=== PATIENT | female | born 1980 | race Two or more races ===

== ENCOUNTER 2017-03-06 23:02 | Inpatient (IN) | payer MEDICAID ==
[~2017-03-06] VITALS: Ht 154.9 cm; Wt 74.5 kg
[~2017-03-06 23:02] MED LIST: CLIN300C93 PO; DIAZ10TA PO; DOXE10CA PO; FLUO20CA19 PO; LEVE250T28 PO; LEVE750T37 PO; NITR100C56 PO; ONDA4TAB7 PO; QUET100T4 PO; TRAM50TA2 PO; TRI CYCLEN PO
[2017-03-06] MEDS ORDERED: LORazepam 2 MG/ML, 1ML IV PRN (23:45)
[2017-03-07] MEDS: SODIUM CHLORIDE 0.9% 1,000 ML IV SCH ×2 (00:11→13:05)
[2017-03-07] MEDS: HYDROcodone/APAP 5/325 TABLET PO PRN ×4 (00:12→20:11)
[2017-03-07 01:31] VITALS: BP 117/76
[2017-03-07 05:10] VITALS: BP 114/74
[2017-03-07 05:51] LABS: HEMOGLOBIN 12.5 g/dL (11.7-16.4)
[2017-03-07 07:15] LABS: BLOOD UREA NITROGEN 12 mg/dL (7-18)
[2017-03-07] MEDS ORDERED: LORazepam 2 MG/ML, 1ML IVPush ONE (07:30)
[2017-03-07 07:47] VITALS: BP 108/67
[2017-03-07] MEDS: LEVETIRACETAM 500 MG TABLET PO SCH ×2 (08:45→20:10)
[2017-03-07] MEDS: CARBAMAZEPINE 200 MG TABLET PO SCH ×2 (08:45→20:10)
[2017-03-07] MEDS: FAMOTIDINE 20 MG TABLET PO SCH ×2 (08:45→20:11)
[2017-03-07 12:35] VITALS: BP 117/80
[2017-03-07 19:05] VITALS: BP 108/71
[2017-03-07] MEDS: FLUOXETINE 20 MG CAPSULE PO SCH (20:09)
[2017-03-07] MEDS: QUETIAPINE 200 MG TABLET PO SCH (22:10)
[2017-03-08 01:29] VITALS: BP 112/73
[2017-03-08] MEDS: SODIUM CHLORIDE 0.9% 1,000 ML IV SCH ×2 (04:30→17:20)
[2017-03-08] MEDS: HYDROcodone/APAP 5/325 TABLET PO PRN ×5 (04:30→23:20)
[2017-03-08 07:17] VITALS: BP 106/64
[2017-03-08] MEDS: FAMOTIDINE 20 MG TABLET PO SCH ×2 (08:21→22:34)
[2017-03-08] MEDS: LEVETIRACETAM 500 MG TABLET PO SCH ×2 (08:21→22:34)
[2017-03-08] MEDS: CARBAMAZEPINE 200 MG TABLET PO SCH ×2 (08:21→22:34)
[2017-03-08 13:51] VITALS: BP 110/68
[2017-03-08] MEDS ORDERED: LEVE500T53 PO (14:11)
[2017-03-08 20:31] VITALS: BP 118/76
[2017-03-08] MEDS: FLUOXETINE 20 MG CAPSULE PO SCH (22:34)
[2017-03-08] MEDS: QUETIAPINE 200 MG TABLET PO SCH (22:34)
[2017-03-09 02:28] VITALS: BP 108/73
[2017-03-09] MEDS: HYDROcodone/APAP 5/325 TABLET PO PRN ×4 (04:38→16:42)
[2017-03-09] MEDS: SODIUM CHLORIDE 0.9% 1,000 ML IV SCH (08:00)
[2017-03-09 08:19] VITALS: BP 109/68
[2017-03-09] MEDS: CARBAMAZEPINE 200 MG TABLET PO SCH (08:44)
[2017-03-09] MEDS: FAMOTIDINE 20 MG TABLET PO SCH (08:44)
[2017-03-09] MEDS: LEVETIRACETAM 500 MG TABLET PO SCH (08:45)
[2017-03-09 13:20] VITALS: BP 120/69
[2017-03-09] MEDS ORDERED: FLU VACC QS2016-17 (36MOS+)UP/PF 0.5 ML IM-VACC ONE (17:00)
== END 2017-03-09 18:33 | disposition home or self-care (01) | DRG 101 ==
LOC: 4EST 23:02
PROVIDERS: ADMIT Internal Medicine; ATTEND Internal Medicine
DX: G40.209 Localization-related (focal) (partial) symptomatic epilepsy and epileptic syndromes with complex partial seizures, not intractable, without status epilepticus (principal); F32.9 Major depressive disorder, single episode, unspecified; I10 Essential (primary) hypertension; Z80.1 Family history of malignant neoplasm of trachea, bronchus and lung; Z82.0 Family history of epilepsy and other diseases of the nervous system; Z82.49 Family history of ischemic heart disease and other diseases of the circulatory system; H91.90 Unspecified hearing loss, unspecified ear; Z87.820 Personal history of traumatic brain injury; S62.306A Unspecified fracture of fifth metacarpal bone, right hand, initial encounter for closed fracture; W19.XXXA Unspecified fall, initial encounter; Y93.89 Activity, other specified; Y92.89 Other specified places as the place of occurrence of the external cause; Y99.8 Other external cause status; Z88.1 Allergy status to other antibiotic agents; Z88.5 Allergy status to narcotic agent; Z88.8 Allergy status to other drugs, medicaments and biological substances
CPT/HCPCS: 36415; 70553; 80048; 82040; 84443; 85025; 95819; J2060; J7030

== ENCOUNTER 2017-04-21 16:24 | Inpatient (IN) | payer MEDICAID ==
[~2017-04-21] VITALS: Ht 154.9 cm; Wt 67.2 kg
[~2017-04-21 16:24] MED LIST changes: +LEVE500T53 PO
[2017-04-21] MEDS ORDERED: SODIUM CHLORIDE 0.9% 1,000 ML IV ONE (17:02)
[2017-04-21] MEDS ORDERED: SODIUM CHLORIDE FLUSH 10ML SYR IVF ONE (17:30)
[2017-04-21 17:42] LABS: PATH.CAST-FLAG NOT PRESENT; SPERM-FLAG NOT PRESENT; SRC-FLAG NOT PRESENT; XTAL-FLAG NOT PRESENT; YLC-FLAG NOT PRESENT
[2017-04-21 17:49] LABS: BLOOD UREA NITROGEN 13 mg/dL (7-18)
[2017-04-21] MEDS ORDERED: CEFTRIAXONE 1,000 MG in SODIUM CHLORIDE 0.9% 50 ML IVPB ONE (18:30)
[2017-04-21] MEDS ORDERED: SODIUM CHLORIDE FLUSH 10ML SYR IVF PRN (18:30)
[2017-04-21 20:30] VITALS: BP 99/64
[2017-04-21] MEDS ORDERED: ONDANSETRON ODT 4 MG PO PRN (20:30)
[2017-04-21] MEDS ORDERED: DOCUSATE 100 MG CAPSULE PO PRN (20:30)
[2017-04-21] MEDS ORDERED: ACETAMINOPHEN 325 MG TABLET PO PRN (20:30)
[2017-04-21] MEDS ORDERED: BISACODYL 10 MG SUPP PR PRN (20:30)
[2017-04-21] MEDS ORDERED: POLYETHYLENE GLYCOL 17 GM PACKET PO PRN (20:30)
[2017-04-21] MEDS ORDERED: LABETALOL 5MG/ML 40ML VIAL IVPush PRN (20:30)
[2017-04-21 20:37] LABS: HCG UR OBC PASS
[2017-04-21] MEDS: QUETIAPINE 100MG TABLET PO SCH (22:08)
[2017-04-21] MEDS: CARBAMAZEPINE 200 MG TABLET PO SCH (22:08)
[2017-04-21] MEDS: ENOXAPARIN 40 MG/0.4 ML SQ SCH (22:08)
[2017-04-21] MEDS: LEVETIRACETAM 500 MG TABLET PO SCH (22:08)
[2017-04-21] MEDS ORDERED: CLON1PAT7 TD (22:12)
[2017-04-21] MEDS: IBUPROFEN 600 MG TABLET PO PRN (22:52)
[2017-04-21] MEDS: NS + 20MEQ KCL 1,000 ML IV SCH (22:53)
[2017-04-22 02:00] VITALS: BP 93/58
[2017-04-22 05:56] LABS: ASPARTATE AMINO TRANSFERASE 6 U/L (15-37); BLOOD UREA NITROGEN 12 mg/dL (7-18)
[2017-04-22 07:10] VITALS: BP 108/70
[2017-04-22] MEDS: QUETIAPINE 100MG TABLET PO SCH ×3 (08:09→21:00)
[2017-04-22] MEDS: CARBAMAZEPINE 200 MG TABLET PO SCH ×2 (08:09→20:59)
[2017-04-22] MEDS: LEVETIRACETAM 500 MG TABLET PO SCH ×2 (08:09→21:00)
[2017-04-22] MEDS: NS + 20MEQ KCL 1,000 ML IV SCH (12:28)
[2017-04-22] MEDS: CEFDINIR 300 MG CAPSULE PO SCH ×2 (12:28→20:59)
[2017-04-22 13:55] VITALS: BP 123/72
[2017-04-22 13:56] VITALS: BP 123/71
[2017-04-22] MEDS: LORazepam 2 MG/ML, 1ML IVPush PRN ×2 (14:01→16:34)
[2017-04-22 14:21] VITALS: BP 99/63
[2017-04-22] MEDS: KETOROLAC 30 MG/1 ML IVPush PRN (16:46)
[2017-04-22 18:50] VITALS: BP 110/72
[2017-04-22] MEDS: IBUPROFEN 600 MG TABLET PO PRN (19:50)
[2017-04-22] MEDS ORDERED: CYCLOBENZAPRINE 10 MG TABLET PO ONE (20:30)
[2017-04-22] MEDS: ENOXAPARIN 40 MG/0.4 ML SQ SCH (21:06)
[2017-04-23] VITALS (14 sets, daily range): BP systolic 68–180; BP diastolic 64–95
[2017-04-23] MEDS: LORazepam 2 MG/ML, 1ML IVPush PRN ×2 (02:34→07:43)
[2017-04-23] MEDS: NS + 20MEQ KCL 1,000 ML IV SCH (03:27)
[2017-04-23] MEDS: CARBAMAZEPINE 200 MG TABLET PO SCH ×2 (08:59→21:18)
[2017-04-23] MEDS: QUETIAPINE 100MG TABLET PO SCH ×3 (08:59→21:18)
[2017-04-23] MEDS: KETOROLAC 30 MG/1 ML IVPush PRN ×2 (08:59→14:14)
[2017-04-23] MEDS: CEFDINIR 300 MG CAPSULE PO SCH ×2 (09:00→21:18)
[2017-04-23] MEDS: LEVETIRACETAM 500 MG TABLET PO SCH ×2 (09:00→21:18)
[2017-04-23] MEDS: IBUPROFEN 600 MG TABLET PO PRN (21:18)
[2017-04-23] MEDS: ENOXAPARIN 40 MG/0.4 ML SQ SCH (21:22)
[2017-04-24 03:30] VITALS: BP 90/56
[2017-04-24 07:59] VITALS: BP 115/77
[2017-04-24 08:42] LABS: BLOOD UREA NITROGEN 10 mg/dL (7-18)
[2017-04-24 08:45] LABS: ASPARTATE AMINO TRANSFERASE 6 U/L (15-37)
[2017-04-24] MEDS: CEFDINIR 300 MG CAPSULE PO SCH ×2 (09:08→20:37)
[2017-04-24] MEDS: LEVETIRACETAM 500 MG TABLET PO SCH (09:08)
[2017-04-24] MEDS: QUETIAPINE 100MG TABLET PO SCH ×3 (09:09→21:00)
[2017-04-24] MEDS: CARBAMAZEPINE 200 MG TABLET PO SCH ×2 (09:09→20:37)
[2017-04-24 13:23] VITALS: BP_SYST 104; BP_SYST 178; BP_DIAS 68; BP_DIAS 81
[2017-04-24 19:27] VITALS: BP 118/77
[2017-04-24] MEDS: ENOXAPARIN 40 MG/0.4 ML SQ SCH (20:38)
[2017-04-25 03:03] VITALS: BP 105/71
[2017-04-25 07:24] VITALS: BP 98/63
[2017-04-25] MEDS: QUETIAPINE 100MG TABLET PO SCH (08:42)
[2017-04-25] MEDS: CEFDINIR 300 MG CAPSULE PO SCH (08:42)
[2017-04-25] MEDS: CARBAMAZEPINE 200 MG TABLET PO SCH (08:42)
[2017-04-25] MEDS ORDERED: CARB200T4 PO (11:15)
== END 2017-04-25 13:40 | disposition home or self-care (01) | DRG 690 ==
LOC: ED 17:49 → EDIP 18:26 → 4EST 20:14 → DCLOUNGE 04-25 13:32
PROVIDERS: ADMIT Internal Medicine; ATTEND Internal Medicine
DX: N39.0 Urinary tract infection, site not specified (principal); I10 Essential (primary) hypertension; E87.6 Hypokalemia; B96.20 Unspecified Escherichia coli [E. coli] as the cause of diseases classified elsewhere; F44.5 Conversion disorder with seizures or convulsions; F32.9 Major depressive disorder, single episode, unspecified; Z90.710 Acquired absence of both cervix and uterus; Z90.49 Acquired absence of other specified parts of digestive tract; Z88.1 Allergy status to other antibiotic agents; Z88.5 Allergy status to narcotic agent; Z88.8 Allergy status to other drugs, medicaments and biological substances; Z80.1 Family history of malignant neoplasm of trachea, bronchus and lung; Z82.49 Family history of ischemic heart disease and other diseases of the circulatory system
CPT/HCPCS: 36415; 70450; 80048; 80053; 81001; 81025; 82040; 83605; 83735; 84439; 84443; 85025; 87040; 87077; 87086; 87186; 93005; 95816; 95819; 95951; 96374; J0696; J1650; J1885; J3480; J2060; J7030

== ENCOUNTER 2017-11-25 18:30 | Emergency (ER) | payer MEDICAID ==
[~2017-11-25] VITALS: Ht 154.9 cm; Wt 64.0 kg
[~2017-11-25 18:30] MED LIST changes: +CARB200T4 PO; +CLIN300C8 PO; -CLIN300C93 PO; +CLON1PAT7 TD
[2017-11-25] MEDS ORDERED: SODIUM CHLORIDE FLUSH 10ML SYR IVF ONE (19:00)
[2017-11-25] MEDS ORDERED: SODIUM CHLORIDE 0.9% 1,000ML IVBOLUS ONE (19:00)
[2017-11-25 19:21] LABS: BASOPHILS # (AUTO) 0.03 x10^3/uL (0-0.1); BASOPHILS % (AUTO) 0 % (0-1); EOSINOPHILS # (AUTO) 0.01 x10^3/uL (0-0.4); EOSINOPHILS % (AUTO) 0 % (1-7); LYMPHOCYTES # (AUTO) 1.13 x10^3/uL (1-3.4); LYMPHOCYTES % (AUTO) 15 % (22-44); MD NO; MEAN CORPUSCULAR HEMOGLOBIN 30.9 pg (27.0-34.8); MEAN CORPUSCULAR HGB CONC 34.1 g/dL (32.4-35.8); MEAN CORPUSCULAR VOLUME 90.5 fL (80-100); MEAN PLATELET VOLUME 7.2 fL (7.4-10.4); MONOCYTES # (AUTO) 0.21 x10^3/uL (0.2-0.8); MONOCYTES % (AUTO) 3 % (2-9); NEUTROPHILS # (AUTO) 6.29 x10^3/uL (1.8-6.8); NEUTROPHILS % (AUTO) 82 % (42-75); PLATELET COUNT 389 x10^3/uL (130-400); RED BLOOD COUNT 4.74 x10^6/uL (3.82-5.3)
[2017-11-25] MEDS ORDERED: LORazepam 2 MG/ML, 1ML ONE (19:25)
[2017-11-25 19:34] LABS: ALANINE AMINOTRANSFERASE 25 U/L (12-78); ANION GAP 10 mmol/L (5-15); CALCIUM 8.3 mg/dL (8.5-10.1); CHLORIDE 107 mmol/L (98-107); CREATININE 0.52 mg/dL (0.55-1.02)
[2017-11-25 19:35] LABS: SALICYLATE LEVEL < 1.7 mg/dL (2.8-20.0)
[2017-11-25 19:36] LABS: ALKALINE PHOSPHATASE 93 U/L (45-117); TOTAL PROTEIN 7.9 g/dL (6.4-8.2)
[2017-11-25 19:37] LABS: ACETAMINOPHEN < 2 mcg/mL (10-30); BILIRUBIN,TOTAL < 0.1 mg/dL (0.2-1.0)
[2017-11-25] MEDS ORDERED: LORazepam 2 MG/ML, 1ML IVPush ONE (20:00)
[2017-11-25] MEDS ORDERED: LEVETIRACETAM 1,000 MG in SODIUM CHLORIDE 0.9% 100 ML IV ONE (20:00)
[2017-11-25 20:10] LABS: AMPHETAMINE SCREEN, URINE Negative (Negative); BARBITURATE SCREEN, URINE Negative (Negative); BENZODIAZEPINE SCREEN, URINE Positive (Negative); CANNABINOID SCREEN, URINE Negative (Negative); COCAINE SCREEN, URINE Negative (Negative); METHADONE SCREEN, URINE Negative (Negative); OPIATE SCREEN, URINE Negative (Negative)
[2017-11-25] MEDS ORDERED: METO25TA91 PO (22:11)
[2017-11-25] MEDS ORDERED: QUET400T4 PO (22:11)
[2017-11-26 08:07] VITALS: BP 118/76
== END 2017-11-26 08:11 | disposition home or self-care (01) ==
LOC: MERGE 18:30 → ED 20:50 → EDIP 20:55 → UNDOADMIN 20:55 → ED 11-26 08:11
DX: T51.92XA Toxic effect of unspecified alcohol, intentional self-harm, initial encounter (principal); R56.9 Unspecified convulsions; F10.129 Alcohol abuse with intoxication, unspecified; I10 Essential (primary) hypertension; I25.2 Old myocardial infarction; Y92.89 Other specified places as the place of occurrence of the external cause
CPT/HCPCS: 36415; 71045; 80053; 80156; 80307; 80329; 85025; 93005; 96361; 96374; 99285; J2060; J7030; G0479; G0480

== ENCOUNTER 2018-08-31 17:41 | Emergency (ER) | payer SELFPAY ==
[~2018-08-31] VITALS: Ht 154.9 cm; Wt 64.5 kg
[~2018-08-31 17:41] MED LIST changes: +METO25TA91 PO; +QUET400T4 PO
[2018-08-31 18:52] LABS: BASOPHILS # (AUTO) 0.06 x10^3/uL (0-0.1); BASOPHILS % (AUTO) 1 % (0-1); EOSINOPHILS # (AUTO) 0.08 x10^3/uL (0-0.4); EOSINOPHILS % (AUTO) 1 % (1-7); LYMPHOCYTES # (AUTO) 1.42 x10^3/uL (1-3.4); LYMPHOCYTES % (AUTO) 16 % (22-44); MD NO; MEAN CORPUSCULAR HEMOGLOBIN 31.3 pg (27.0-34.8); MEAN CORPUSCULAR HGB CONC 34.6 g/dL (32.4-35.8); MEAN CORPUSCULAR VOLUME 90.3 fL (80-100); MEAN PLATELET VOLUME 7.4 fL (7.4-10.4); MONOCYTES # (AUTO) 0.76 x10^3/uL (0.2-0.8); MONOCYTES % (AUTO) 8 % (2-9); NEUTROPHILS # (AUTO) 6.63 x10^3/uL (1.8-6.8); NEUTROPHILS % (AUTO) 74 % (42-75); PLATELET COUNT 332 x10^3/uL (130-400); RED CELL DISTRIBUTION WIDTH 13.4 % (9.6-15.2)
[2018-08-31 19:02] LABS: CHLORIDE 111 mmol/L (98-107)
[2018-08-31 19:03] LABS: ALBUMIN 3.3 g/dL (3.4-5.0); ANION GAP 9 mmol/L (5-15); CALCIUM 8.5 mg/dL (8.5-10.1)
[2018-08-31 19:05] LABS: ALANINE AMINOTRANSFERASE 16 U/L (12-78); ALKALINE PHOSPHATASE 72 U/L (45-117); BILIRUBIN,TOTAL 0.2 mg/dL (0.2-1.0); CREATININE 0.57 mg/dL (0.55-1.02); TOTAL PROTEIN 7.1 g/dL (6.4-8.2)
[2018-08-31 19:10] LABS: MICROSCOPIC INDICATED
[2018-08-31 19:20] LABS: CULTURE INDICATED? NO
[2018-08-31] MEDS ORDERED: PANTOPRAZOLE 40 MG IV IVPush SCH (19:30)
[2018-08-31 19:31] LABS: INTERNATIONAL NORMALIZED RATIO 0.97 (0.93-1.1)
[2018-08-31] MEDS ORDERED: OMNIPAQUE 350 MG/ML, 100ML BOTTLE ONE (19:42)
[2018-08-31] MEDS ORDERED: PANTOPRAZOLE 40 MG IV ONE (19:52)
[2018-08-31 20:33] VITALS: BP 123/84
== END 2018-08-31 22:01 | disposition home or self-care (01) ==
LOC: ED 20:46
DX: K92.2 Gastrointestinal hemorrhage, unspecified (principal); R11.2 Nausea with vomiting, unspecified; R10.84 Generalized abdominal pain; Z88.1 Allergy status to other antibiotic agents; Z88.5 Allergy status to narcotic agent
CPT/HCPCS: 36415; 74021; 74177; 80053; 81001; 83690; 85025; 85610; 85730; 96374; 99285; C9113; Q9967

== ENCOUNTER 2019-01-08 16:19 | Emergency (ER) | payer OTHER ==
[~2019-01-08] VITALS: Ht 154.9 cm; Wt 63.1 kg
--- NOTE | 2019-01-08 17:10 | NUR ---
Pt reports small discolored painful lump that formed on her left wrist approx 30min prior to arrival, also reports left upper arm pain, full ROM. Reports mild SOB upon arrival to ED, pt in no obv acute resp distrees upon assessment.
[2019-01-08 17:25] LABS: BASOPHILS # (AUTO) 0.05 x10^3/uL (0-0.1); BASOPHILS % (AUTO) 1 % (0-1); EOSINOPHILS # (AUTO) 0.19 x10^3/uL (0-0.4); EOSINOPHILS % (AUTO) 2 % (1-7); LYMPHOCYTES # (AUTO) 2.26 x10^3/uL (1-3.4); LYMPHOCYTES % (AUTO) 28 % (22-44); MD NO; MEAN CORPUSCULAR HEMOGLOBIN 29.8 pg (27.0-34.8); MEAN CORPUSCULAR HGB CONC 33.6 g/dL (32.4-35.8); MEAN CORPUSCULAR VOLUME 88.9 fL (80-100); MEAN PLATELET VOLUME 7.8 fL (7.4-10.4); MONOCYTES # (AUTO) 0.45 x10^3/uL (0.2-0.8); MONOCYTES % (AUTO) 6 % (2-9); NEUTROPHILS # (AUTO) 5.02 x10^3/uL (1.8-6.8); NEUTROPHILS % (AUTO) 63 % (42-75); PLATELET COUNT 387 x10^3/uL (130-400); RED BLOOD COUNT 4.52 x10^6/uL (3.82-5.3); RED CELL DISTRIBUTION WIDTH 13.4 % (9.6-15.2)
--- NOTE | 2019-01-08 17:31 | NUR ---
Pt update on poc (US, recheck) Denies needs/questions
--- NOTE | 2019-01-08 17:57 | NUR ---
US at bedside.
--- NOTE | 2019-01-08 18:23 | NUR ---
Pt updated on poc again (us results, recheck), pt continues to report pain in arm, pt aware no pain meds have been ordered, will notify MD, pt denies any new pain since inital RN/MD assesment.
[2019-01-08 19:36] VITALS: BP 101/58
== END 2019-01-08 19:39 | disposition home or self-care (01) ==
LOC: ED 18:26
DX: I80.8 Phlebitis and thrombophlebitis of other sites (principal); I25.2 Old myocardial infarction; I10 Essential (primary) hypertension
CPT/HCPCS: 36415; 85025; 99284

== ENCOUNTER 2019-12-09 17:59 | Emergency (ER) | payer OTHER ==
[~2019-12-09] VITALS: Ht 154.9 cm; Wt 69.5 kg
--- NOTE | 2019-12-09 19:32 | NUR ---
PT AMBULATES FROM TRIAGE TO ROOM WITH STEADY GAIT. AWAITING ERP.
[2019-12-09] MEDS ORDERED: SODIUM CHLORIDE 0.9% 1,000ML IVBOLUS ONE (20:00)
[2019-12-09] MEDS ORDERED: KETOROLAC 30 MG/1 ML IVPush ONE (20:00)
[2019-12-09] MEDS ORDERED: PROMETHAZINE 25 MG/ML, 1ML IM ONE (20:00)
--- NOTE | 2019-12-09 20:06 | NUR ---
Pt to CT via [facility] at this time.
[2019-12-09] MEDS ORDERED: KETOROLAC 30 MG/1 ML ONE (20:10)
[2019-12-09] MEDS ORDERED: PROMETHAZINE 25 MG/ML, 1ML ONE (20:10)
[2019-12-09 20:22] LABS: BASOPHILS # (AUTO) 0.08 x10^3/uL (0-0.1); BASOPHILS % (AUTO) 1 % (0-1); EOSINOPHILS # (AUTO) 0.42 x10^3/uL (0-0.4); EOSINOPHILS % (AUTO) 5 % (1-7); LYMPHOCYTES % (AUTO) 31 % (22-44); MD NO; MEAN CORPUSCULAR HEMOGLOBIN 29.9 pg (27.0-34.8); MEAN CORPUSCULAR HGB CONC 33.2 g/dL (32.4-35.8); MEAN CORPUSCULAR VOLUME 90.1 fL (80-100); MEAN PLATELET VOLUME 7.8 fL (7.4-10.4); MONOCYTES # (AUTO) 0.68 x10^3/uL (0.2-0.8); MONOCYTES % (AUTO) 8 % (2-9); NEUTROPHILS # (AUTO) 4.95 x10^3/uL (1.8-6.8); NEUTROPHILS % (AUTO) 56 % (42-75); PLATELET COUNT 382 x10^3/uL (130-400); RED BLOOD COUNT 4.57 x10^6/uL (3.82-5.3); RED CELL DISTRIBUTION WIDTH 13.7 % (9.6-15.2)
[2019-12-09 20:24] LABS: ANION GAP 7 mmol/L (5-15); CALCIUM 8.5 mg/dL (8.5-10.1); CHLORIDE 111 mmol/L (98-107)
[2019-12-09 20:25] LABS: CREATININE 0.69 mg/dL (0.55-1.02)
--- NOTE | 2019-12-09 20:36 | NUR ---
Phenergan IM administered per eMAR. Unable to get PIV for bolus and toradol at this time, requested assistance for u/s guided IV placement
--- NOTE | 2019-12-09 20:54 | NUR ---
PIV placed by u/s guided.
[2019-12-09] MEDS ORDERED: SERT50TA PO (21:06)
[2019-12-09] MEDS ORDERED: QUET400T4 PO (21:06)
[2019-12-09] MEDS ORDERED: CARB200T PO (21:06)
--- NOTE | 2019-12-09 21:06 | NUR ---
Pt medicated by eMAR, pt resting comfortably in [facility], states nausea is gone.
[2019-12-09 21:20] VITALS: BP 110/70
== END 2019-12-09 22:00 | disposition home or self-care (01) ==
LOC: ED 21:06
DX: S06.0X1A Concussion with loss of consciousness of 30 minutes or less, initial encounter (principal); R11.10 Vomiting, unspecified; I10 Essential (primary) hypertension; I25.2 Old myocardial infarction; W18.30XA Fall on same level, unspecified, initial encounter; Y93.89 Activity, other specified; Y92.009 Unspecified place in unspecified non-institutional (private) residence as the place of occurrence of the external cause; Y99.8 Other external cause status
CPT/HCPCS: 36415; 70450; 80048; 85025; 96361; 96372; 96374; 99284; J1885; J2550; J7030

== ENCOUNTER 2019-12-26 15:12 | Emergency (ER) | payer OTHER ==
[~2019-12-26] VITALS: Ht 154.9 cm; Wt 68.0 kg
[~2019-12-26 15:12] MED LIST changes: +CARB200T PO; +SERT50TA PO
[2019-12-26] MEDS ORDERED: KETOROLAC 30 MG/1 ML ONE (15:46)
[2019-12-26] MEDS ORDERED: ONDANSETRON 2MG/ML, 2ML ONE (15:46)
[2019-12-26] MEDS ORDERED: HYDROmorphone 1 MG/ML, 1ML INJ ONE (15:46)
[2019-12-26] MEDS ORDERED: HYDROmorphone 1 MG/ML, 1ML INJ IV ONE (16:00)
[2019-12-26] MEDS ORDERED: SODIUM CHLORIDE FLUSH 10ML SYR IVF ONE (16:00)
[2019-12-26] MEDS ORDERED: ONDANSETRON 2MG/ML, 2ML IVPush ONE (16:00)
[2019-12-26] MEDS ORDERED: KETOROLAC 30 MG/1 ML IVPush ONE (16:00)
[2019-12-26 16:09] LABS: BASOPHILS % (AUTO) 1 % (0-1); EOSINOPHILS # (AUTO) 0.37 x10^3/uL (0-0.4); EOSINOPHILS % (AUTO) 4 % (1-7); LYMPHOCYTES # (AUTO) 2.41 x10^3/uL (1-3.4); LYMPHOCYTES % (AUTO) 25 % (22-44); MD NO; MEAN CORPUSCULAR HGB CONC 33.1 g/dL (32.4-35.8); MEAN CORPUSCULAR VOLUME 90.6 fL (80-100); MEAN PLATELET VOLUME 7.3 fL (7.4-10.4); MONOCYTES % (AUTO) 6 % (2-9); NEUTROPHILS # (AUTO) 6.23 x10^3/uL (1.8-6.8); NEUTROPHILS % (AUTO) 64 % (42-75); PLATELET COUNT 415 x10^3/uL (130-400); RED BLOOD COUNT 4.55 x10^6/uL (3.82-5.3); RED CELL DISTRIBUTION WIDTH 13.8 % (9.6-15.2)
[2019-12-26 16:12] LABS: MICROSCOPIC AUTO
[2019-12-26 16:19] LABS: CULTURE INDICATED? NO
[2019-12-26 16:30] LABS: ALANINE AMINOTRANSFERASE 16 U/L (12-78); ALBUMIN 3.7 g/dL (3.4-5.0); ANION GAP 10 mmol/L (5-15); CALCIUM 8.6 mg/dL (8.5-10.1); CHLORIDE 109 mmol/L (98-107); CREATININE 0.75 mg/dL (0.55-1.02)
[2019-12-26 16:35] LABS: ALKALINE PHOSPHATASE 79 U/L (45-117); BILIRUBIN,TOTAL 0.2 mg/dL (0.2-1.0); TOTAL PROTEIN 7.5 g/dL (6.4-8.2)
--- NOTE | 2019-12-26 16:43 | NUR ---
BREAK RN: PT RESTING IN ROOM. NO ACUTE DISTRESS NOTED. CALL LIGHT IN PLACE. WILL CONTINUE TO MONITOR.
[2019-12-26 18:21] VITALS: BP 124/65
--- NOTE | 2019-12-26 18:27 | NUR ---
ERP AT FOR RECHECK.
--- NOTE | 2019-12-26 18:45 | NUR ---
D/C INSTRUCTIONS, MEDS & F/U APPT RV'WD WITH PT, SHE VERBALIZES UNDERSTANDING. RX GIVEN X1. INSTRUCTED PT TO RETURN TO ED FOR ANY NEW OR WORSENING SYMPTOMS. PT AMBULATED OUT OF ED WITH WITHOUT DIFFICULTY.
== END 2019-12-26 18:46 | disposition home or self-care (01) ==
LOC: ED 15:23
DX: N23 Unspecified renal colic (principal); R11.2 Nausea with vomiting, unspecified; I10 Essential (primary) hypertension; G40.909 Epilepsy, unspecified, not intractable, without status epilepticus
CPT/HCPCS: 36415; 74176; 80053; 81001; 83690; 84703; 85025; 96374; 96375; 99284; J1170; J1885; J2405

== ENCOUNTER 2020-06-19 22:47 | Emergency (ER) | payer OTHER ==
[~2020-06-19] VITALS: Ht 154.9 cm; Wt 70.4 kg
[2020-06-19 22:52] VITALS: BP 124/79
--- NOTE | 2020-06-19 23:31 | NUR ---
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 TO ROOM FROM LOBBY AT THIS TIME.
--- NOTE | 2020-06-19 23:42 | NUR ---
PT AMBULATED TO ROOM 36 C/O GENERALIZED ABD PAIN, N/V/D X3 DAYS. PT HAS HX OF DIVERTICULITIS AND OVARIAN CYSTS, BUT STATES THIS PAIN IS MUCH DIFFERENT. MONITORS IN PLACE, PT [id number]
[2020-06-20] MEDS ORDERED: MAALOX/HYOSCYAMINE/LIDOCAINE 45 ML BTL ONE (00:36)
[2020-06-20 00:40] LABS: BASOPHILS # (AUTO) 0.05 x10^3/uL (0-0.1); BASOPHILS % (AUTO) 1 % (0-1); EOSINOPHILS % (AUTO) 4 % (1-7); LYMPHOCYTES # (AUTO) 3.52 x10^3/uL (1-3.4); LYMPHOCYTES % (AUTO) 35 % (22-44); MD NO; MEAN CORPUSCULAR HEMOGLOBIN 29.9 pg (27.0-34.8); MEAN CORPUSCULAR HGB CONC 33.5 g/dL (32.4-35.8); MEAN PLATELET VOLUME 7.6 fL (7.4-10.4); MONOCYTES # (AUTO) 0.78 x10^3/uL (0.2-0.8); MONOCYTES % (AUTO) 8 % (2-9); NEUTROPHILS # (AUTO) 5.24 x10^3/uL (1.8-6.8); NEUTROPHILS % (AUTO) 53 % (42-75); PLATELET COUNT 403 x10^3/uL (130-400); RED BLOOD COUNT 4.45 x10^6/uL (3.82-5.3); RED CELL DISTRIBUTION WIDTH 13.3 % (9.6-15.2)
[2020-06-20 00:47] LABS: ALANINE AMINOTRANSFERASE 22 U/L (12-78); ALBUMIN 3.3 g/dL (3.4-5.0); ANION GAP 7 mmol/L (5-15); CALCIUM 8.2 mg/dL (8.5-10.1); CHLORIDE 108 mmol/L (98-107); CREATININE 0.81 mg/dL (0.55-1.02)
[2020-06-20 00:49] LABS: ALKALINE PHOSPHATASE 64 U/L (45-117); BILIRUBIN,TOTAL 0.2 mg/dL (0.2-1.0); TOTAL PROTEIN 7.2 g/dL (6.4-8.2)
[2020-06-20 00:56] LABS: MICROSCOPIC AUTO
[2020-06-20] MEDS ORDERED: MAALOX/HYOSCYAMINE/LIDOCAINE 45 ML BTL PO ONE (01:00)
== END 2020-06-20 01:43 | disposition home or self-care (01) ==
LOC: ED 06-20 01:26
DX: R10.84 Generalized abdominal pain (principal); R11.2 Nausea with vomiting, unspecified; R19.7 Diarrhea, unspecified; I10 Essential (primary) hypertension; M79.10 Myalgia, unspecified site; I25.2 Old myocardial infarction; G40.909 Epilepsy, unspecified, not intractable, without status epilepticus
CPT/HCPCS: 36415; 80053; 81001; 83690; 85025; 87086; 99283